=== PATIENT | female | born 1950 | race Caucasian/White ===

== ENCOUNTER → 2024-05-02 11:52 | Outpatient (REF) | payer OTHER, SELFPAY | LOC: WDC 11:52 | PROVIDERS: ATTENDING PHYSICIAN Nurse Practitioner Family | DX: Z12.31 Encounter for screening mammogram for malignant neoplasm of breast (principal) | CPT/HCPCS: 77063; 77067 ==

== ENCOUNTER → 2024-09-26 10:02 | Outpatient (REF) | payer OTHER, SELFPAY | LOC: RAD 10:02 | PROVIDERS: ATTENDING PHYSICIAN Nurse Practitioner Family | DX: K76.0 Fatty (change of) liver, not elsewhere classified (principal); M85.80 Other specified disorders of bone density and structure, unspecified site; Z87.891 Personal history of nicotine dependence; F17.200 Nicotine dependence, unspecified, uncomplicated | CPT/HCPCS: 71271; 76700; 77080 ==

== ENCOUNTER → 2025-05-28 09:47 | Outpatient (REF) | payer OTHER, SELFPAY | LOC: WDC 09:47 | PROVIDERS: ATTENDING PHYSICIAN Physician Assistant Medical; FAMILY PHYSICIAN Nurse Practitioner Family | DX: N63.12 Unspecified lump in the right breast, upper inner quadrant (principal) | CPT/HCPCS: 76642; 77062; 77066 ==

== ENCOUNTER → 2025-06-02 07:05 | Outpatient (REF) | payer OTHER, SELFPAY ==
--- NOTE | 2025-06-02 08:55 | OID.BR.INTR ---
[facility] Breast Navigator - Initial
- -
Date of Contact: 06/02/25
Met with patient. Patient given written information on navigator service available at [facility]. Will follow up as needed per protocol.
== END ==
LOC: WDC 07:05
PROVIDERS: ATTENDING PHYSICIAN Physician Assistant Medical
DX: N63.11 Unspecified lump in the right breast, upper outer quadrant (principal)
CPT/HCPCS: 19081; 76098; 88305; 88342; 88360; A4648

== ENCOUNTER → 2025-06-17 10:38 | Outpatient (REF) | payer OTHER, SELFPAY | LOC: MRI 3T 10:38 | PROVIDERS: ATTENDING PHYSICIAN Surgery; FAMILY PHYSICIAN Nurse Practitioner Family | DX: C50.411 Malignant neoplasm of upper-outer quadrant of right female breast (principal); Z17.0 Estrogen receptor positive status [ER+] | CPT/HCPCS: 77049; A9585 ==

== ENCOUNTER → 2025-06-20 14:48 | Outpatient (REF) | payer OTHER, SELFPAY | LOC: WDC 14:48 | PROVIDERS: ATTENDING PHYSICIAN Surgery; FAMILY PHYSICIAN Nurse Practitioner Family | DX: R92.8 Other abnormal and inconclusive findings on diagnostic imaging of breast (principal); C50.411 Malignant neoplasm of upper-outer quadrant of right female breast | CPT/HCPCS: 76642 ==

== ENCOUNTER → 2025-06-25 07:41 | Outpatient (REF) | payer OTHER, SELFPAY | LOC: WDC 07:41 | PROVIDERS: ATTENDING PHYSICIAN Surgery; FAMILY PHYSICIAN Nurse Practitioner Family | DX: N63.12 Unspecified lump in the right breast, upper inner quadrant (principal) | CPT/HCPCS: 19083; 88305; A4648 ==

== ENCOUNTER → 2025-07-18 06:40 | Outpatient (REF) | payer OTHER, SELFPAY | LOC: WDC 06:40 | PROVIDERS: ATTENDING PHYSICIAN Surgery | DX: C50.411 Malignant neoplasm of upper-outer quadrant of right female breast (principal) | CPT/HCPCS: 19281; A4648 ==

== ENCOUNTER 2025-07-22 06:00 | Day surgery (SDC) | payer OTHER, SELFPAY ==
[2025-07-22 06:57] VITALS: BMI 28.9
[2025-07-22 06:58] VITALS: BP 139/61
[2025-07-22] MEDS: TYLENOL 1000 MG PO (07:08)
[2025-07-22] MEDS: NORMOSOL-R/PLASMALYTE-A 1000 IV (07:08)
[2025-07-22] MEDS: LOVENOX 40 MG SC (07:08)
[2025-07-22 08:36] VITALS: BP 129/58
[2025-07-22 08:43] VITALS: BP 127/57
--- NOTE | 2025-07-22 08:48 | W.IMMPOSTOP ---
Surgical Immed Post Op Note
-
Primary Surgeon: Josseline
Assisting Surgeon: None
Pre-op Diagnosis: Right breast ca
Post-op Diagnosis: Right breast ca
Procedure Performed: Right localized lumpectomy
Anesthesia Type: TIVA
Specimen / Cultures: Right lumpectomy and margins
Estimated Blood Loss: 4cc
Complications: None
Operative Findings: Clip and reflector in specimen
--- NOTE | 2025-07-22 08:49 | OR.RPT ---
Operative Report
Operative Report
Date of procedure: 07/22/2025
Surgeon: Josseline
Preoperative diagnosis: Right breast carcinoma
Postoperative diagnosis: Right breast carcinoma
Procedure: Right localized lumpectomy
The patient is a 74-year-old female who had an image detected change in her right breast that led to biopsy showing a favorable early-stage right breast carcinoma. She met criteria to forego axillary surgical sampling and presents for localized
lumpectomy. On the day prior to the procedure she presented to the [place] [facility] where a Gunjan reflector was placed at the tumor site. On the day of the procedure she presented to the same-day surgical services unit. She was prepped.
DVT and antibiotic prophylaxis were provided and she was taken to the operating room.
In the supine position intravenous sedation was delivered. The right breast was prepped and draped in usual sterile fashion. An appropriate timeout procedure was performed by all staff members. All tissues were anesthetized with 1% lidocaine
plain. A curvilinear incision was made sharply with the blade overlying the area of highest Gunjan wound care physician signal. Dissection was carried down to the appropriate area using the cautery and a wide lumpectomy was performed. The specimen was oriented
for the pathologist and specimen radiography confirmed the presence of the clip and reflector within it. Additional margins were harvested for permanent analysis from the posterior, medial, superior, lateral, inferior, and anterior dimensions.
These were oriented as well. Hemostasis was verified. Marcaine 0.5% plain was instilled into all tissues. Hemoclips were placed in the resection cavity and the wound was closed using simple interrupted 2-0 Polysorb on deep and intermediate
tissues. Subcutaneous tissue was closed with simple interrupted 3-0 Polysorb and skin was closed with a running subcuticular 4 Monocryl. Surgical glue and a sterile compressive dressing was applied. All sponge needle and instrument counts were
correct and the patient was transferred to the recovery room in stable condition.
()
[2025-07-22 08:55] VITALS: BP 136/64
[2025-07-22 09:00] VITALS: BP 99/88
[2025-07-22 09:12] VITALS: BP 121/62
== END 2025-07-22 09:35 | disposition home or self-care (01) ==
LOC: SDS 06:00
PROVIDERS: ATTENDING PHYSICIAN Surgery
DX: D24.1 Benign neoplasm of right breast (principal)
CPT/HCPCS: 19301; 76098; 80053; 82306; 84134; 85027; 88305; 88307; 88341; 88342; 88360; 93005